=== PATIENT | male | born 1950 | race Caucasian/White ===

== ENCOUNTER → 2017-04-28 10:01 | Outpatient (CLI) | payer OTHER ==
--- NOTE | 2017-05-08 16:56 | EC ---
PATIENT:UZAIR CATES DATE OF SERVICE: 04/28/17 SEX: M MEDICAL RECORD: [id number] DATE OF : 46 LOCATION:D[facility] AGE OF PATIENT: 67 ADMISSION DATE: 04/28/17 REFERRING PHYSICIAN: INTERPRETING PHYSICIAN: KATALINA VAUGHAN MD ECHOCARDIOGRAM REPORT ECHO CHARGES 4 ECHO COMPLETE CLINICAL DIAGNOSIS: CAD HX OF STENTS/HTN ECHOCARDIOGRAPHIC MEASUREMENTS (adult normal given) AC root (d.<3.7cm) 3.7 cm LV Septum d (<1.2 cm> 1.6 cm Valve Excursion 2.7 cm LV Septum (systole) 1.8 cm Left Atria (s.<4.0cm> 3.9 cm LVPW d(<1.2cm) 1.7 cm RV (d.<2.3cm) 4.4 cm LVPW (sytole) 1.8 cm LV diastole(<5.6CM) 5.6 cm MV E-F(>70mm/sec) cm LV systole 4.2 cm LVOT Diameter 2.2 cm MV exc.(>10mm) cm Est.ejection fraction (50-75%) % Pericardial Effusion N DOPPLER: LVIT cm/sec A 83.0 cm/sec E 69.0 cm/sec LA cm/sec RVSP 29 mmHg LVOT 118 cm/sec AOP1/2T m/s Asc. Ao 146 cm/sec RVOT 82 cm/sec RA cm/sec PA 134 cm/sec AV Gradient Peak 8.49 mmHg AV Mean 4.27 mmHg AV Area 3.6 cm MV Gradient Peak 3.55 mmHg MV Mean 1.34 mmHg MV Area cm COMMENTS: Plug Wirer: Ray RYAN Sulfate Drier Machine Operator: 2 Dr. Kaur TAPE# PACS DATE OF SERVICE: 04/28/2017 Echocardiogram FINDINGS: 1. Left ventricle chamber size is within normal limits. Left ventricular systolic function is lower limits of normal at 50%. 2. Left atrium, right atrium and right ventricular chamber sizes are within normal limits. 3. Valvular structures have normal structure and motion. ECHOCARDIOGRAM REPORT [id number] UZAIR CATES 4. Doppler interrogation only reveals mild tricuspid regurgitation. No other valvular insufficiency or stenosis. Pulmonary systolic pressure is normal at 29 mmHg. 5. No evidence of pericardial effusion or left ventricular thrombus. TRANSINT:[id number] Voice Confirmation ID: [id number] DOCUMENT ID: [id number] KATALINA VAUGHAN MD at 1656 CC: [id number] DICTATION DATE: 04/28/17 1220 SHIP PILOT: 04/28/17 1246 DEP CLI 04/28/17 [id number] [place] [address]
== END | disposition home or self-care (01) ==
LOC: D.ECHO 10:01
DX: I25.10 Atherosclerotic heart disease of native coronary artery without angina pectoris (principal)